=== PATIENT | female | born 2005 | race Two or more races ===

== ENCOUNTER 2025-02-28 21:17 | Emergency (ER) | payer MEDICAID, SELFPAY ==
[2025-02-28 21:18] VITALS: BMI 28.2
--- NOTE | 2025-02-28 21:28 | EDNOTE_ITS ---
ED OB Contraction Preg RMI/HPI General Chief complaint: Vaginal Bleeding Stated complaint: VAG BLEEDING 6 WKS PREG Time Seen by Provider: 02/28/25 21:43 Arrival date/time: 02/28/25 21:17 RME / HPI RME / HPI Narrative: This section includes all my notes and documentations, including HPI, PE, and ED course. Moe Crawford MD HPI: 19 y/o female [place] ~6 weeks presents to ED c/o vaginal bleeding and cramping x approximately 12 hours. LMP was 01/17/25 and at-home test was positive. Took misoprostol for yesterday and today. No other complaints. ROS: All negative except as documented in HPI. Physical Exam: General: Alert and oriented. In obvious pain. Eyes: Conjunctivae and lids clear. ENT: No nasal congestion. Neck: Supple. Heart: RRR. Lungs: No respiratory distress. Good air movement. No rhonchi, wheezing, rales. Abdomen: Soft with lower abdominal tenderness. Normal bowel sounds. No distension. No rebound or guarding. Back: No CVA tenderness. Skin: Warm and dry. Neuro: Alert and oriented X 3. I reviewed all diagnostic test results. My review of the OB US report is no IUP. Blood tests and urine tests remarkable for beta-hCG 7412. At this point, diagnoses include incomplete . Treatment here included Zofran, Percocet. Significant improvement noted. Recommended expectant management. Based on my best medical judgment, made decision no further evaluation or treatment indicated at this time. Patient understands and agrees to the discharge instructions customized and printed, see below. Discharge Instructions from Dr. Crawford printed for you: 1. After evaluation, your /miscarriage is almost complete. 2. You may have more cramping and bleeding for a couple of days as your body tries to get everything out of the uterus. 3. Tylenol with codeine for severe pain. 4. Zofran for nausea/vomiting. For good hydration, increase oral fluid and maintain clear urine. If dark or yellow, increase oral fluid. 5. See a private doctor on 03/02/2025 for recheck. Ask for help until you are completely better. 6. Seek immediate medical care with intolerable pain, severe heavy vaginal bleeding (soaking more than 3 pads per hour), or with any concerns. Moe Crawford MD Related Data Home Medications ?Medication ?Instructions ?Recorded ?Confirmed diphenhydramine HCl 12.5 mg/5 mL 12.5 mg PO Q6HR PRN R RUBIN ##0 05/07/14 oral liquid (Q-Dryl) Previous Rx's ?Medication ?Instructions ?Recorded prednisolone 15 mg/5 mL oral 2 tsp PO QDAY #70 mL 04/19 solution pantoprazole 20 mg tablet,delayed 20 mg PO QDAY #20 ta bs 06/30/22 release (Protonix) pantoprazole 40 mg tablet,delayed 40 mg PO QDAY #20 ta bs 07/08/24 release (Protonix) acetaminophen 300 mg-codeine 30 mg 2 tab PO Q8H PRN pa in #20 tabs 03/01/25 tablet ondansetron 4 mg disintegrating 4 mg PO TID PRN nausea and 03/01/25 tablet vomiting 30 days #10 tabs Allergies Allergy/AdvReac Type Severity Reaction Status Date / Time No Known Allergies Allergy Verified 07/08/24 17:11 Review of Systems Review of Systems Systems Reviewed: All systems reviewed, normal except as documented Past Medical History Social History SMOKING STATUS: Never smoker ED Exam Narrative Physical exam: Refer to HPI above Course Quality Measures none Orders Category Date Time Status US OB <= 14 weeks fetus Stat Exams 02/28/25 21:32 Completed Beta HCG,Quantitative Stat Lab 02/28/25 21:44 Completed CBC Stat Lab 02/28/25 21:44 Completed CMP [Comprehensive Metabolic Panel] Stat Lab 02/28/25 21:44 Completed Magnesium Stat Lab 02/28/25 21:44 Completed Rh Testing Only Stat Lab 02/28/25 21:44 Completed UA, C/S IF [Urinalysis, C/S if Indicated] Stat Lab 02/28/25 22:18 Completed Ondansetron Odt [Zofran Odt] Med 02/28/25 21:44 Discontinued 4 mg PO X1 ONE oxyCODONE/APAP 5/325 [Percocet 5/325] Med 02/28/25 21:44 Discontinued 2 tab PO X1 ONE Vital Signs Vital signs: Vital Signs Temperature 98 F 02/28/25 21:38 Pulse Rate 86 02/28/25 21:38 Respiratory Rate 18 02/28/25 21:38 Blood Pressure 113/67 02/28/25 21:38 Pulse Oximetry (%) 99 02/28/25 21:38 Oxygen Delivery Method Room Air 02/28/25 21:38 Vaginal Bleeding MDM Narrative MDM Narrative: Scribe Attestation: ILois, am scribing for and in the presence of Dr. Crawford. Provider Notation: Although this document has been carefully reviewed, there may still be some phonetic and other typographical errors.? These errors are purely grammatical due to imperfections in the software program and should not be construed in any way to? compromise the substance of the patient's medical care during this visit. 19 y/o female [place] 6 weeks presents to ED c/o vaginal bleeding and cramping x approximately 12 hours. LMP was 01/17/25 and at-home test was positive. No other complaints. Patient data External records reviewed:: [facility] previous records (Prior ED records from 07/08/24 reviewed. Patient was seen for Gastritis.) Clinical information provided by:: patient Social determinants that could affect healthcare access:: none Patient has the following chronic illnesses:: None reported How is presenting disease/condition affected by chronic disease/condition?: no chronic disease Evaluation data The following diagnostics were reviewed and interpreted by me:: lab results and radiology exam(s) Lab and/or radiology exams considered but not ordered:: None Interpretation Summary: I reviewed all diagnostic test results. My review of the OB US report is no IUP. Blood tests and urine tests remarkable for beta-hCG 7412. Medications / Prescriptions Medications or Prescriptions considered but not ordered:: None Medication administrations:: Medication Administration History Discontinued Medications Ondansetron HCl (Ondansetron Odt 4 Mg Tabrap) 4 mg PO X1 ONE; Protocol Stop: 02/28/25 21:45 Last Admin: 02/28/25 22:08 Dose: 4 mg Documented By: DON Oxycodone/Acetaminophen (Oxycodone/Apap 5/325 Tablet) 2 tab PO X1 ONE Stop: 02/28/25 21:45 Last Admin: 02/28/25 22:07 Dose: 2 tab Documented By: Monica Durán. Consultations Consultation(s) initiated? (list below): No Diagnosis Vaginal Bleeding Differential Diagnosis: missed , threatened , dysfunctional uterine bleeding, menometrorrhagia, incomplete , ectopic without intrauterine and vaginal bleeding Most likely diagnosis given after review of the tests above:: Incomplete Admission Indicated Admission indicated?: not indicated Explain why admission is indicated or not indicated:: With significant improvement, there was no indication for admission. Admission Request Was there a request for admission?: No Disposition Plan Disposition Plan: Discharge Discharge Attestation Discharge Attestation: The patient and all family members were given an opportunity to ask questions and understood the discharge instructions. Discharge instructions specifically effects, indications for sooner follow up or return to the emergency department, and the expected course of current diagnosis. Patient condition: Stable Discharge Plan Plan Patient Disposition: HOME (Self Care) Prescriptions/Referrals Prescriptions/Med Rec: New acetaminophen-codeine 300-30 mg tablet 2 tab PO Q8H MDD 6 PRN (Reason: pain) Qty: 20 0RF ondansetron 4 mg tablet,disintegrating 4 mg PO TID PRN (Reason: nausea and vomiting) 30 Days Qty: 10 0RF No Action diphenhydramine HCl [Q-Dryl] 12.5 MG/5 ML liquid 12.5 mg PO Q6HR PRN (Reason: RASH) Qty: 0 prednisolone 15 MG/5 ML syrup 2 tsp PO QDAY Qty: 70 0RF pantoprazole [Protonix] 20 mg tablet,delayed release (DR/EC) 20 mg PO QDAY Qty: 20 0RF pantoprazole [Protonix] 40 mg tablet,delayed release (DR/EC) 40 mg PO QDAY Qty: 20 0RF Referrals: Mauricio Tomlinson MD [Primary Care Provider] - In 1 week Problem List Clinical Impression: Incomplete Patient/Caregiver Discharge Instructions Discharge Activity: activity as tolerated Education Materials: ED Miscarriage, Incomplete Additional Instructions: Discharge Instructions from Dr. Crawford printed for you: 1. After evaluation, your /miscarriage is almost complete. 2. You may have more cramping and bleeding for a couple of days as your body tries to get everything out of the uterus. 3. Tylenol with codeine for severe pain. 4. Zofran for nausea/vomiting. For good hydration, increase oral fluid and maintain clear urine. If dark or yellow, increase oral fluid. 5. See a private doctor on 03/02/2025 for recheck. Ask for help until you are completely better. 6. Seek immediate medical care with intolerable pain, severe heavy vaginal bleeding (soaking more than 3 pads per hour), or with any concerns. Print Language: [place]arag[place] Stand Alone Forms: Marian Award Info., Patient Portal Info Letter
--- NOTE | 2025-02-28 21:32 | XR_ITS ---
Examination: Complete OB ultrasound, less than 14 weeks, transabdominal Date and time of exam: February 28, 2025 1041 hours INDICATIONS: Vaginal bleeding and pelvic cramping today Technique: Obstetrical ultrasound images less than 14 weeks performed via transabdominal imaging Findings: Uterus 8.6 cm endometrial stripe 1.5 cm No uterine mass or intrauterine gestation Right ovary 4.1 cm arterial flow Left ovary 3.7 cm arterial flow IMPRESSION: Negative examination
[2025-02-28 21:38] VITALS: BP 113/67; PULSE 86; RESP 18; TEMP 36.6; O2SAT 99
[2025-02-28] MEDS: oxyCODONE/APAP 5/325 TABLET 2 TAB PO (22:07)
[2025-02-28] MEDS: ONDANSETRON ODT 4 MG TABRAP PO (22:08)
[2025-02-28 22:26] LABS: Basophils % (Auto) 0 % (0-2.5); Eosinophils # (Auto) 0.1 Thou/mm3 (0.0-0.5); Eosinophils % (Auto) 1 % (0-10); Hematocrit 38.3 % (36.0-46.0); Hemoglobin 13.4 g/dL (12.0-16.0); Immature Granulocytes % (Auto) 0 % (0-0); Immature Granulocytes Auto 0.01 Thou/mm3 (0.00-0.00); Lymphocytes # (Auto) 1.7 Thou/mm3 (1.0-4.8); Lymphocytes % (Auto) 25 % (10-50); Mean Corpuscular Hemoglobin 31.5 pg (25.0-35.0); Mean Corpuscular Volume 90 fL (80-100); Monocytes # (Auto) 0.7 Thou/mm3 (0.0-0.8); Monocytes % (Auto) 9 % (0-12); Neutrophils # (Auto) 4.6 Thou/mm3 (1.8-7.7); Neutrophils % (Auto) 65 % (37-80); Nucleated Red Blood Cell % 0 /100 WBC (0); Platelet Count 250 Thou/mm3 (140-440); RDW Standard Deviation 42.2 fL (36.4-46.3); Red Blood Count 4.25 Miln/mm3 (4.00-5.20); White Blood Count 7.1 Thou/mm3 (3.6-11.0)
[2025-02-28 22:43] LABS: Alanine Aminotransferase 11 U/L (10-49); Albumin, Serum 4.4 gm/dL (3.5-5.0); Albumin/Globulin Ratio 1.7 (1.2-2.2); Alkaline Phosphatase 73 U/L (46-116); Anion Gap 8 (7-16); Aspartate Amino Transferase 16 U/L (0-34); BUN/Creatinine Ratio 17 Ratio (12-20); Bilirubin,Total 0.3 mg/dL (0.3-1.2); Blood Urea Nitrogen 12 mg/dL (9-23); Calcium 8.4 mg/dL (8.3-10.6); Calcium (Corrected) 8.4 mg/dL (8.5-10.1); Carbon Dioxide 27.4 mMol/L (20.0-31.0); Chloride 105 mMol/L (98-107); Creatinine (Component) 0.7 mg/dL (0.6-1.3); Estimated Creatinine Clearance 135.1 mL/min (>60); Globulin 2.6 gm/dL (2.3-3.5); Glucose 93 mg/dL (74-106); Magnesium 1.8 mg/dL (1.6-2.6); Osmolality,Calculated 279 (275-295); Sodium 140 mMol/L (136-145); eGFR > 60 See Note
[2025-02-28 22:44] LABS: Collection Type, Urine Clean Catch
[2025-02-28 23:00] LABS: Beta HCG,Quantitative 7412 mIU/mL (<5.0)
[2025-02-28 23:11] LABS: Bilirubin,Urine Negative (Negative); Blood,Urine 3+ (Negative); Clarity,Urine Turbid (Clear/Hazy); Color,Urine Brown (Lt Yel-Yel); Culture Indicated,Urine Not Indicated; Glucose, Urine Negative (Negative); Ketones,Urine Negative (Negative); Leukocyte Esterase,Urine Positive (Negative); Nitrite,Urine Negative (Negative); PH,Urine 7.5 (5.0-7.0); Protein,Urine 1+ (Neg - Trace); RBC,Urine 5 /hpf (0-3); Specific Gravity,Urine 1.031 (1.001-1.035); Squamous Epithelial Cell,Urine 2 /hpf (0-5); Urobilinogen,Urine Negative mg/dL (0.0-1.0); WBC,Urine < 1 /hpf (0-5)
== END 2025-03-01 00:15 | disposition home or self-care (01) ==
PROVIDERS: Emergency Provider Emergency Medicine; PCP Family Medicine
DX: O03.4 Incomplete spontaneous abortion without complication (principal); Z3A.01 Less than 8 weeks gestation of pregnancy
CPT/HCPCS: 36415; 76801; 80053; 81001; 83735; 84702; 85025; 86901; 99284; Q0162; A9270

== ENCOUNTER 2025-08-12 10:03 | Emergency (ER) | payer MEDICAID, SELFPAY ==
[2025-08-12 10:10] VITALS: BP 111/74; PULSE 71; RESP 16; O2SAT 100; BMI 28.1
--- NOTE | 2025-08-12 10:33 | PD.EDRME ---
Rapid Medical Screening Exam RME Arrival date/time: 08/12/25 10:03 20-year-old female presents to the emergency department today saying that 3 days ago she was seen at [facility] patient ultrasound was concerning for ectopic and was referred to the ER for further evaluation Chief Complaint: Abdominal Pain Vital signs: Vital Signs Pulse Rate 71 08/12/25 10:10 Respiratory Rate 16 08/12/25 10:10 Blood Pressure 111/74 08/12/25 10:10 Pulse Oximetry (%) 100 08/12/25 10:10 Oxygen Delivery Method Room Air 08/12/25 10:10 Vital signs reviewed by provider: Yes Exam: Mild tenderness pelvic region Hemodynamically stable does not appear ill or toxic Clinical Impression: Lab work and imaging obtained
--- NOTE | 2025-08-12 10:34 | XR_ITS ---
EXAMINATION: Transabdominal pelvic sonography Date and time: August 12, 2025, 1111 hours INDICATIONS: Pelvic pain today FINDINGS: Uterus 8.0 cm, intrauterine gestational sac 0.4 cm corresponds to 5 weeks 1 day gestational age No pole, no cardiac activity Right ovary 4.3 cm arterial flow 19 mm solid-appearing mass with vascularity medial to the right ovary Left ovary 2.8 cm arterial flow IMPRESSION: Empty intrauterine gestational sac corresponding to 5 weeks 1 day gestational age, no pole, no cardiac activity Vascular mass medial to the right ovary 19 x 19 x 17 mm, differential would include ectopic Short-term follow-up transvaginal pelvic sonography strongly recommended
[2025-08-12 10:54] LABS: Collection Type, Urine Clean Catch
[2025-08-12 10:58] LABS: Basophils # (Auto) 0.0 Thou/mm3 (0.0-0.2); Basophils % (Auto) 1 % (0-2.5); Eosinophils # (Auto) 0.1 Thou/mm3 (0.0-0.5); Eosinophils % (Auto) 1 % (0-10); Hematocrit 39.0 % (36.0-46.0); Hemoglobin 13.1 g/dL (12.0-16.0); Immature Granulocytes Auto 0.01 Thou/mm3 (0.00-0.00); Lymphocytes # (Auto) 1.4 Thou/mm3 (1.0-4.8); Lymphocytes % (Auto) 23 % (10-50); Mean Corpuscular HGB Conc 33.6 g/dl (31.0-37.0); Mean Corpuscular Hemoglobin 30.8 pg (25.0-35.0); Mean Corpuscular Volume 92 fL (80-100); Monocytes # (Auto) 0.6 Thou/mm3 (0.0-0.8); Monocytes % (Auto) 10 % (0-12); Neutrophils # (Auto) 3.9 Thou/mm3 (1.8-7.7); Neutrophils % (Auto) 65 % (37-80); Nucleated Red Blood Cell # 0.00 Thou/mm3 (0.00-0.00); Nucleated Red Blood Cell % 0 /100 WBC (0); Platelet Count 235 Thou/mm3 (140-440); RDW Standard Deviation 42.0 fL (36.4-46.3); Red Blood Count 4.26 Miln/mm3 (4.00-5.20); White Blood Count 6.0 Thou/mm3 (3.6-11.0)
[2025-08-12 11:02] LABS: Bilirubin,Urine Negative (Negative); Blood,Urine Negative (Negative); Clarity,Urine Clear (Clear/Hazy); Color,Urine Lt-Yellow (Lt Yel-Yel); Culture Indicated,Urine Not Indicated; Glucose, Urine Negative (Negative); Ketones,Urine Negative (Negative); Nitrite,Urine Negative (Negative); PH,Urine 6.5 (5.0-7.0); Protein,Urine Negative (Neg - Trace); RBC,Urine 1 /hpf (0-3); Specific Gravity,Urine 1.026 (1.001-1.035); Squamous Epithelial Cell,Urine 9 /hpf (0-5); Urobilinogen,Urine Negative mg/dL (0.0-1.0); WBC,Urine 1 /hpf (0-5)
[2025-08-12 11:03] LABS: Leukocyte Esterase,Urine Trace (Negative)
[2025-08-12 11:34] LABS: Alanine Aminotransferase 10 U/L (10-49); Albumin, Serum 4.6 gm/dL (3.5-5.0); Albumin/Globulin Ratio 2.2 (1.2-2.2); Alkaline Phosphatase 63 U/L (46-116); Anion Gap 8 (7-16); Aspartate Amino Transferase 19 U/L (0-34); BUN/Creatinine Ratio 13 Ratio (12-20); Beta HCG,Quantitative 1683 mIU/mL (<5.0); Bilirubin,Total 0.5 mg/dL (0.3-1.2); Blood Urea Nitrogen 9 mg/dL (9-23); Calcium 8.8 mg/dL (8.3-10.6); Calcium (Corrected) 8.8 mg/dL (8.5-10.1); Carbon Dioxide 25.1 mMol/L (20.0-31.0); Chloride 108 mMol/L (98-107); Creatinine (Component) 0.7 mg/dL (0.6-1.3); Estimated Creatinine Clearance 133.8 mL/min (>60); Globulin 2.1 gm/dL (2.3-3.5); Glucose 77 mg/dL (74-106); Osmolality,Calculated 278 (275-295); Potassium 3.9 mMol/L (3.4-5.1); Sodium 141 mMol/L (136-145); Total Protein 6.7 gm/dL (5.7-8.2); eGFR > 60 See Note
--- NOTE | 2025-08-12 13:20 | PC.NURSE ---
Pt. here from home to room 19, pt. states she is here for left lower abdominal pain, and she was sent here from her Doctor to rule out ectopic . Pt. states she thought she was 10 weeks but told now she's only 5 weeks . Pt. states she spotted 2 days ago but no vaginal bleeding today, pt. denies any nausea or vomiting. Pt. states she is . Pt.'s s/o is bedside rubbing her feet.
--- NOTE | 2025-08-12 13:32 | EDNOTE_ITS ---
ED OB Contraction Preg RMI/HPI General Chief complaint: Abdominal Pain Stated complaint: abd pain. + preg. sent for r/o eptopic Arrival date/time: 08/12/25 10:03 RME / HPI RME / HPI Narrative: 08/12/25 10:03 20-year-old female presents to the emergency department today saying that 3 days ago she was seen at [facility] patient ultrasound was concerning for ectopic and was referred to the ER for further evaluation DR. RUBIA ROSAS ED EVALUATION: 20-year-old female presents to the Emergency Department sent to rule out ectopic . The patient reports having a positive home test one week ago. Her last menstrual period was on 05/31/2025, though she had light spotting on 07/08/2025. She recently saw an ELIGIBILITY WORKER at a [facility] on Thursday, where an ultrasound did not show evidence of an intrauterine , and she was advised to come to the ED to rule out ectopic . The patient reports intermittent pelvic pain for the past two weeks, more prominent on the left side. Also has mild vaginal spotting two days ago. She denies severe pain, heavy vaginal bleeding, syncope, lightheadedness, nausea, vomiting, or urinary symptoms. Related Data Home Medications ?Medication ?Instructions ?Recorded ?Confirmed diphenhydramine HCl 12.5 mg/5 mL 12.5 mg PO Q6HR PRN R RUBIN ##0 05/07/14 oral liquid (Q-Dryl) Previous Rx's ?Medication ?Instructions ?Recorded prednisolone 15 mg/5 mL oral 2 tsp PO QDAY #70 mL 04/19 solution pantoprazole 20 mg tablet,delayed 20 mg PO QDAY #20 ta bs 06/30/22 release (Protonix) pantoprazole 40 mg tablet,delayed 40 mg PO QDAY #20 ta bs 07/08/24 release (Protonix) acetaminophen 300 mg-codeine 30 mg 2 tab PO Q8H PRN pa in #20 tabs 03/01/25 tablet Allergies Allergy/AdvReac Type Severity Reaction Status Date / Time No Known Allergies Allergy Verified 08/12/25 10:04 Review of Systems Review of Systems Systems Reviewed: All systems reviewed, normal except as documented Past Medical History Social History SMOKING STATUS: Never smoker SUBSTANCE USE: does not use ALCOHOL: Never ED Exam Narrative Physical exam: GENERAL APPEARANCE: alert and oriented x 4, well-developed, well-nourished, no acute distress VITALS: All vitals were reviewed and the pulse ox is 100% on room air, which is normal according to my interpretation. HEENT: Normocephalic, atraumatic; pupils equal, round, reactive to light; EOMI; mucous membranes pink, moist; oropharynx clear NECK: Supple LUNGS: CTABL; no wheezes, no rales, no rhonchi HEART: Regular rate, regular rhythm; normal S1, S2; no murmurs ABDOMEN: non distended; normal BS; soft, no tenderness, no guarding, no rebound; no masses, no organomegaly, no hernia BACK: no CVA tenderness EXTREMITIES: atraumatic; no edema NEUROLOGIC: awake; alert and oriented x4; cranial nerves II-XII grossly intact; no focal sensory or motor deficits PSYCHIATRIC: appropriate mood and affect SKIN: warm, dry, normal color; no rashes Course Quality Measures none Orders Category Date Time Status US OB transvaginal Stat Exams 08/12/25 10:34 Completed ABO/RH Type Stat Lab 08/12/25 10:49 Completed Beta HCG,Quantitative Stat Lab 08/12/25 10:49 Completed CBC Stat Lab 08/12/25 10:49 Completed Comprehensive Metabolic Panel Stat Lab 08/12/25 10:49 Completed UA, C/S IF [Urinalysis, C/S if Indicated] Stat Lab 08/12/25 10:50 Completed Vital Signs Vital signs: Vital Signs Pulse Rate 71 08/12/25 10:10 Respiratory Rate 16 08/12/25 10:10 Blood Pressure 111/74 08/12/25 10:10 Pulse Oximetry (%) 100 08/12/25 10:10 Oxygen Delivery Method Room Air 08/12/25 10:10 Vaginal Bleeding MDM Narrative MDM Narrative: I, Daysi Croft am scribing for and in the presence of Dr. Harmon. Patient data External records reviewed:: [facility] previous records Clinical information provided by:: patient Social determinants that could affect healthcare access:: none Patient has the following chronic illnesses:: Denies any PMHx, surgeries, daily medications, or known allergies. How is presenting disease/condition affected by chronic disease/condition?: no chronic disease Evaluation data The following diagnostics were reviewed and interpreted by me:: lab results and radiology exam(s) Lab and/or radiology exams considered but not ordered:: none Interpretation Summary: Procedure(s): US OB transvaginal Accession Number(s): [id number] cc: Derik (LESA),Miller MCFADDEN; Mauricio Tomlinson MD; Eric Lane MD~ EXAMINATION: Transabdominal pelvic sonography Date and time: August 12, 2025, 1111 hours INDICATIONS: Pelvic pain today FINDINGS: Uterus 8.0 cm, intrauterine gestational sac 0.4 cm corresponds to 5 weeks 1 day gestational age No pole, no cardiac activity Right ovary 4.3 cm arterial flow 19 mm solid-appearing mass with vascularity medial to the right ovary Left ovary 2.8 cm arterial flow IMPRESSION: Empty intrauterine gestational sac corresponding to 5 weeks 1 day gestational age, no pole, no cardiac activity Vascular mass medial to the right ovary 19 x 19 x 17 mm, differential would include ectopic Short-term follow-up transvaginal pelvic sonography strongly recommended Dictated By: Eric Lane MD Medications / Prescriptions Medications or Prescriptions considered but not ordered:: none Medication administrations:: none Consultations Consultation(s) initiated? (list below): No Consultation #1 (Physician, Specialty, Details): Discussed test HPI, PMHx, lab, radiology results and/or management with Dr. Aguilar. Will follow with the patient as an outpatient in 2 days. Time: 13:30 Diagnosis Vaginal Bleeding Differential Diagnosis: other (Early intrauterine , ectopic , and threatened miscarriage.) Most likely diagnosis given after review of the tests above:: at early stage Admission Indicated Admission indicated?: not indicated Admission Request Was there a request for admission?: No Disposition Plan Disposition Plan: Discharge Discharge Attestation Discharge Attestation: The patient and all family members were given an opportunity to ask questions and understood the discharge instructions. Discharge instructions specifically effects, indications for sooner follow up or return to the emergency department, and the expected course of current diagnosis. Patient condition: Stable Discharge Plan Prescriptions/Referrals Prescriptions/Med Rec: No Action diphenhydramine HCl [Q-Dryl] 12.5 MG/5 ML liquid 12.5 mg PO Q6HR PRN (Reason: RASH) Qty: 0 prednisolone 15 MG/5 ML syrup 2 tsp PO QDAY Qty: 70 0RF pantoprazole [Protonix] 20 mg tablet,delayed release (DR/EC) 20 mg PO QDAY Qty: 20 0RF pantoprazole [Protonix] 40 mg tablet,delayed release (DR/EC) 40 mg PO QDAY Qty: 20 0RF acetaminophen-codeine 300-30 mg tablet 2 tab PO Q8H MDD 6 PRN (Reason: pain) Qty: 20 0RF Referrals: Mauricio Tomlinson MD [Primary Care Provider, Family Practice] - In 1 week Problem List Clinical Impression: at early stage Patient/Caregiver Discharge Instructions Education Materials: Your First Trimester ... Additional Instructions: According to your lab work and ultrasound, you may have a very early . Follow up in 48 hours for repeat lab work and ultrasound. Return to the emergency room sooner if you have increased pelvic pain, increased vaginal bleeding, lightheadedness or fainting or other concerns. Print Language: Rwandan
[2025-08-12 14:21] VITALS: BP 114/69; PULSE 75; RESP 18; TEMP 36.7; O2SAT 99
== END 2025-08-12 14:43 | disposition home or self-care (01) ==
PROVIDERS: Nurse Practitioner Primary Care; Emergency Provider Emergency Medicine; PCP Family Medicine
DX: O26.891 Other specified pregnancy related conditions, first trimester (principal); Z3A.01 Less than 8 weeks gestation of pregnancy; R10.9 Unspecified abdominal pain
CPT/HCPCS: 36415; 76817; 80053; 81001; 84702; 85025; 86900; 86901; 99281